=== PATIENT | male | born 1980 | race Two or more races ===

== ENCOUNTER 2016-08-16 14:45 | Emergency (ER) | payer SELFPAY ==
[2016-08-16] MEDS ORDERED: ZOFRAN INJ 4 MG VIAL IVP ONE (15:00)
[2016-08-16] MEDS ORDERED: DEMEROL INJ IVP ONE ×2 (15:00→16:54)
[2016-08-16] MEDS ORDERED: DEMEROL INJ ONE ×2 (15:01→16:56)
[2016-08-16] MEDS ORDERED: ZOFRAN INJ 4 MG VIAL ONE (15:01)
[2016-08-16] MEDS ORDERED: ROCEPHIN VIAL 1 GM 1 GM in NS 50 ML IV + SPIKE MINIBAG* 50 ML IV ONE (15:05)
--- NOTE | 2016-08-16 15:10 | DR.GENAD ---
HPI - Complaint/Symptoms Chief Complaint Doctors Comments: chin cut with chain saw [employer]ODUCTION [employer] - Nurses notes reviewed Nurses Notes Review: Yes - Source History Provided: Patient - Mode of Arrival Mode of Arrival: Ambulatory - Timing Came on: Suddenly - Duration Duration: Since Onset Duration: Minutes - Location Location: chin - Severity Severity: Moderate - Modifying Factors Worsens:: opening mouth - Associated Signs and Symptoms Associated Signs and Symptoms: tooth missing PMH - PMH Past Medical History: Hypertension Past Surgical History: No Surgical History: No History Unable to Obtain Due To: denies: Altered mental status, Dementia, Medical urgency, Intubated - Family History History of Family Medical Conditions: Yes - Social History Do you use any recreational Drugs:: No ROS - Review of Systems Constitutional: No Symptoms Reported Eyes: No Symptoms Reported ENTM: Mouth Pain Respiratoy: No Symptoms Reported Cardiovascular: No Symptoms Reported Gastrointestinal/Abdominal: No Symptoms Reported Genitourinary: No Symptoms Reported Neurological: No Symptoms Reported Musculoskeletal: No Symptoms Reported Integumentary: No Symptoms Reported Hematologic/Lymphatic: No Symptoms Reported Endocrine: No Symptoms Reported Psychiatric: Depression PE - Vital Signs Vitals: Temperature 98.9 F Pulse Rate 82 Respiratory Rate 16 Blood Pressure 160/105 O2 Sat by Pulse Oximetry 99 - General Limitations: No Limitations General Appearance: Alert, In No Apparent Distress - Head Head Exam: Normal Inspection - Eyes Eye exam: Normal Appearance, EOMI. negative: Scleral Icterus, Conjunctival Injection - ENT ENT Exam: negative: Normal Oropharynx (chin cut involving lower gum and tooth) External Ear Exam: Normal External Inspection Nose Exam: Normal Nose Exam Mouth Exam: Other (4cm chin cut). negative: Drooling, Trismus, Tongue Elevation , Tongue Swelling Throat Exam: Normal Inspection - Neck Neck Exam: Normal Inspection, Full ROM, Trachea Midline - Chest Chest Inspection: Normal Inspection - Respiratory Respiratory Exam: Normal Lung Sounds Bilat. negative: Accessory Muscle Use, Respiratory Distress Respiratory Exam: Bilateral Clear to Auscultation - Extremities Extremities Exam: Normal Inspection, Full ROM - Neurologic Neurological Exam: Alert, Oriented X3, CN II-XII Intact - Psychiatric Psychiatric Exam: Normal Mood, Anxious - Skin Skin Exam: Normal Color. negative: Intact (4cm cut to chin) Course - Treatment Treatment: 1630: case discussed with Dr. Pawan [facility] accepted patient R[facility] - Labs Reviewed Result Diagrams: 08/16/16 15:17 08/16/16 15:17 Laboratory: WBC 5.9 X10^3/uL (3.6-10.0) 08/16/16 15:17 RBC 5.53 X10^6/uL (4.7-6.0) 08/16/16 15:17 Hgb 16.0 g/dL (13.5-18.0) 08/16/16 15:17 Hct 45.9 % (42.0-54.0) 08/16/16 15:17 MCV 83.1 fL (80.0-100.0) 08/16/16 15:17 MCH 29.0 pg (27.0-34.0) 08/16/16 15:17 MCHC 34.9 g/dL (33.0-35.0) 08/16/16 15:17 RDW 13.4 % (11.6-16.5) 08/16/16 15:17 Plt Count 206 X10^3/uL (150.0-450.0) 08/16/16 15:17 MPV 7.9 fL (7.4-11.0) 08/16/16 15:17 Neut % 57.0 % (42.0-75.0) 08/16/16 15:17 Lymph % 31.7 % (21.0-51.0) 08/16/16 15:17 Converse % 7.4 % (0.0-13.0) 08/16/16 15:17 Eos % 3.4 % (0.9-2.9) H 08/16/16 15:17 Baso % 0.5 % (0.2-1.0) 08/16/16 15:17 Neut # 3.4 x10^3/uL (2.2-4.8) 08/16/16 15:17 Lymph # 1.9 X10^3/uL (1.3-2.9) 08/16/16 15:17 Converse # 0.4 x10^3/uL (0.3-0.8) 08/16/16 15:17 Eos # 0.2 x10^3/uL (0.0-0.2) 08/16/16 15:17 Baso # 0.0 X10^3/uL (0.0-0.1) 08/16/16 15:17 Absolute Nucleated RBC 0.0 /100WBC 08/16/16 15:17 Sodium 140 mmol/L (136-145) 08/16/16 15:17 Corrected Sodium 141 mmol/L (136-145) 08/16/16 15:17 Potassium 3.7 mmol/L (3.5-5.1) 08/16/16 15:17 Chloride 103 mmol/L (98-107) 08/16/16 15:17 Carbon Dioxide 29.7 mmol/L (21-32) 08/16/16 15:17 BUN 13 mg/dL (7-18) 08/16/16 15:17 Creatinine 1.13 mg/dL (0.70-1.30) 08/16/16 15:17 Est GFR (MDRD) Af Amer > 60 (>60) 08/16/16 15:17 Est GFR (MDRD) Non-Af > 60 (>60) 08/16/16 15:17 Glucose 156 mg/dL (65-99) H 08/16/16 15:17 Calcium 8.1 mg/dL (8.5-10.1) L 08/16/16 15:17 Procedures - Laceration/Wound Repair Face Wound Length (cm): 5 Wound's Depth, Shape: Linear, Irregular Betadine Prep?: Yes Anesthesia: 1% Lidocaine w/ Epi Volume Anesthetic (ccs): 8 Suture Size/Type: Other (le) Layer Closure?: No Sterile Dressing Applied?: Yes - Diagnosis Discharge Problem: Fracture Chin laceration Qualifiers: Encounter type: initial encounter Qualified Code(s): S01.81XA - Laceration without foreign body of other part of head, initial encounter - Discharge Plan Condition: Stable Prescriptions: Cephalexin [Keflex Cap 500 mg] 500 mg PO BID #20 cap Tramadol HCl [ULTRAM 50 MG *] 50 mg PO Q6H PRN #20 tab PRN Reason: Pain - Follow ups/Referrals Follow ups/Referrals: NFD,None [Primary Care Provider] - 3 days - Instructions
[2016-08-16 15:21] VITALS: BP 160/105; BMI 25.3
[2016-08-16] MEDS ORDERED: ROCEPHIN 1 GM IV PREMIX * OUT OF STOCK 50 ML IV ONE (15:26)
[2016-08-16 15:27] LABS: BASOPHILS % (AUTO) 0.5 % (0.2-1.0); EOSINOPHILS # (AUTO) 0.2 x10^3/uL (0.0-0.2); EOSINOPHILS % (AUTO) 3.4 % (0.9-2.9); HEMATOCRIT 45.9 % (42.0-54.0); LYMPHOCYTES # (AUTO) 1.9 X10^3/uL (1.3-2.9); LYMPHOCYTES % (AUTO) 31.7 % (21.0-51.0); MEAN CORPUSCULAR HGB CONC 34.9 g/dL (33.0-35.0); MEAN CORPUSCULAR VOLUME 83.1 fL (80.0-100.0); MEAN PLATELET VOLUME 7.9 fL (7.4-11.0); MONOCYTES # (AUTO) 0.4 x10^3/uL (0.3-0.8); MONOCYTES % (AUTO) 7.4 % (0.0-13.0); NEUTROPHILS # (AUTO) 3.4 x10^3/uL (2.2-4.8); PLATELET COUNT 206 X10^3/uL (150.0-450.0); RED BLOOD COUNT 5.53 X10^6/uL (4.7-6.0); RED CELL DISTRIBUTION WIDTH 13.4 % (11.6-16.5); WHITE BLOOD COUNT 5.9 X10^3/uL (3.6-10.0)
[2016-08-16 15:33] LABS: BLOOD UREA NITROGEN 13 mg/dL (7-18); CALCIUM 8.1 mg/dL (8.5-10.1); CARBON DIOXIDE 29.7 mmol/L (21-32); CHLORIDE 103 mmol/L (98-107); COR NA(FOR HYPERGLY) 141 mmol/L (136-145); CREATININE 1.13 mg/dL (0.70-1.30); GLUCOSE 156 mg/dL (65-99); SODIUM 140 mmol/L (136-145); eGFR BLACK RACES > 60 (>60); eGFR NON BLACK RACES > 60 (>60)
[2016-08-16] MEDS ORDERED: XYLOCAINE 1% and EPINEPHRINE 1:100,000 ONE (15:39)
[2016-08-16] MEDS ORDERED: XYLOCAINE 1% and EPINEPHRINE 1:100,000 IM ONE (15:39)
[2016-08-16] MEDS ORDERED: NS 500 ML IV 500 ML IV SCH (16:00)
--- NOTE | 2016-08-16 16:00 | CT ---
CT facial bones without contrast Indication: Chainsaw cut chin Comparison: None available Technique: Multiple axial images of the facial structures were obtained from the mandible to superio r portions of the orbits. Radiation dose reduction techniques were performed utilizing adjustment for MA/kVP based on patient body size. Findings: There is extensive soft tissue swelling within the median and right paramedian submandibular soft ti ssues. Multiple small radiopaque densities are noted within the subcutaneous tissues of the right ramirez bmandibular region with laceration within midline chin. There are radiopaque foreign bodies also not ed within the midline premandibular soft tissues for example on axial image 32. There is a nondispla shane fracture of a right mandibular tooth on coronal image 12 which appears to be the lateral incisor . Cortical irregularity involving the anterior aspect of the midline mandibular symphysis likely rep resents a nondisplaced fracture as well. No mandibular dislocation identified. Mild sinus mucosal di sease of the left maxillary sinus.. Pterygoid plates are intact. Orbits are unremarkable. Impression: Penetrating traumatic injury within the midline and right paramedian submandibular soft tissues with associated laceration within midline submandibular soft tissues. Multiple tiny radiopaq ue foreign bodies are noted within the midline submandibular and right paramedian soft tissues. Ther e is cortical irregularity involving the midline mandibular symphysis deep to a laceration likely re present a nondisplaced fracture. There is a nondisplaced fracture of a right mandibular tooth which appears represent the lateral incisor; however clinical correlation is needed. Reported By:
== END 2016-08-16 17:26 | disposition home or self-care (01) ==
LOC: ER 14:51
PROC: 0WQ20ZZ Repair Face, Open Approach (ICD-10-PCS; principal; 2016-08-16)
DX: S01.81XA Laceration without foreign body of other part of head, initial encounter (principal); S02.92XA Unspecified fracture of facial bones, initial encounter for closed fracture; W27.0XXA Contact with workbench tool, initial encounter; Y92.9 Unspecified place or not applicable
CPT/HCPCS: 12013; 36415; 70486; 80048; 85025; 96365; 96374; 96375; 99282; 99285; A4222; J0696; J2001; J2175; J2405

== ENCOUNTER 2016-10-18 13:55 | Emergency (ER) | payer SELFPAY ==
[2016-10-18 14:01] VITALS: BP 122/83; BMI 27.6
--- NOTE | 2016-10-18 14:41 | DR.GENAD ---
HPI - PCP Primary Care Physician: ZEHRA - HPI Comment HPI Comment: PAIN GETTING WORSE WELL THE SWELLING. NO SOB. TOOK ASPIRIN. NO FEVER. - Complaint/Symptoms Chief Complaint Doctors Comments: PAIN LEFT LEGS WITH VARICOSE VEINS AND PALPABLE CORDS TIMES 4 DAYS. Chief Complaint:: LEFT LEG HURTING, VEINS IN BACK OF LEFT LEG ARE HARD AND SWOLLEN. Self Treatment fo Chief Complaint: REST AND PROPPED LEG UP. ASPRIN - Nurses notes reviewed Nurses Notes Review: Yes - Source History Provided: Patient - Mode of Arrival Mode of Arrival: Ambulatory - Timing Onset of Chief Complaint: 10/14/16 Came on: Suddenly - Duration Duration: Constant Duration: Days - Severity Severity: Moderate PMH - PMH Past Medical History: Yes Past Medical History: Hypertension Past Surgical History: No Surgical History: No History - Family History History of Family Medical Conditions: No - Social History Type of Tobacco Use: Cigarettes Does any household member use tobacco: No Alcohol Use: None Do you use any recreational Drugs:: No Lives With: Alone Lives Where: Home - infectious screening In the last 2 months have you had wt loss of >10#?: NO Have you had fever, night sweats or hemotysis?: No Have you traveled outside the country in the last 6 months?: No Isolation: Standard ROS - Review of Systems Constitutional: negative: Chills, Fever, Fatigue Eyes: No Symptoms Reported. negative: Eye Pain, Discharge ENTM: No Symptoms Reported. negative: Ear Pain, Nose Discharge, Nose Congestion , Throat Pain Respiratoy: No Symptoms Reported. negative: Productive Cough, Non-Productive Cough, Short of Breath, Wheezing, Hemoptysis Cardiovascular: Edema (LET LEG). negative: Chest Pain Gastrointestinal/Abdominal: No Symptoms Reported. negative: Abdominal Pain, Constipation, Diarrhea, Nausea, Vomiting Genitourinary: No Symptoms Reported. negative: Dysuria, Frequency, Hematuria Neurological: No Symptoms Reported. negative: Headache, Weakness, Dizziness Musculoskeletal: Muscle Pain, Left, Leg Integumentary: No Symptoms Reported Hematologic/Lymphatic: No Symptoms Reported Endocrine: No Symptoms Reported All Other Systems: Reviewed and Negative PE - Vital Signs Vitals: Temperature 98 F Pulse Rate 73 Respiratory Rate 20 Blood Pressure 122/83 O2 Sat by Pulse Oximetry 99 - General Limitations: No Limitations General Appearance: Alert - Head Head Exam: Normal Inspection - Eyes Eye exam: Normal Appearance - ENT ENT Exam: Normal External Ear Exam External Ear Exam: Normal External Inspection TM/Canal Exam: Bilateral Normal Nose Exam: Normal Nose Exam Mouth Exam: Normal Inspection Throat Exam: Normal Inspection - Neck Neck Exam: Trachea Midline - Chest Chest Inspection: Symmetric Chest Wall Rise - Respiratory Respiratory Exam: Normal Lung Sounds Bilat Respiratory Exam: Bilateral Clear to Auscultation - Cardiovascular Cardiovascular Exam: Regular Rate, Normal Rhythm, Normal Heart Sounds - Abdominal Exam Abdominal Exam: Normal Bowel Sounds, Soft. negative: Tenderness - Extremities Extremities Exam: Tenderness (LT LEGS WITH VARICOSE VEINS THAT ARE DILATED. POSTERIOR ASPECT OF LEG POSITIVE PALPABLE CORDS.), Calf Tenderness (LEFT LEG), Other (PULSES INTACT.) - Back Back Exam: Normal Inspection - Neurologic Neurological Exam: Alert, Oriented X3 - Psychiatric Psychiatric Exam: Normal Affect, Normal Mood - Skin Skin Exam: Normal Color MDM - Differential Diagnosis Differential Diagnosis: DVT, PHLEBITIS, VARICOSE VEINS Course - Treatment Treatment: SEE ORDERS. - Education/Counseling Education/Counseling: Patient, Education Educated On: Treatment, Diagnosis, Needs for Follow Up ROR - Labs Reviewed Laboratory Results Reviewed?: Yes Laboratory: D-Dimer < 100 ng/mL (0-400) 10/18/16 14:45 - XRAY XRAY Interpreted by: Radiologist XRAY Findings: DISCUSS REPORT WITH PATIENT. - Diagnosis Discharge Problem: Venous stasis, Varicose vein of leg - Discharge Plan Disposition: 01 HOME, SELF-CARE Condition: Stable Prescriptions: Ibuprofen [MOTRIN TAB 600 MG *] 600 mg PO TID PRN #20 tab PRN Reason: Pain/Inflammation - Follow ups/Referrals Follow ups/Referrals: JOCELYN SMITH [Primary Care Provider] - 3 days - Instructions Instructions: Venous Stasis or Chronic Venous Insufficiency, Varicose Veins Additional Instructions: RETURN TO ED IF WORSE.
--- NOTE | 2016-10-18 16:18 | VAS ---
HISTORY: Left leg pain Study: Left lower extremity venous Doppler Comparison: None TECHNIQUE: Multiple hernadez scale as well as spectral and color flow Doppler images of the deep venous system were obtained of the left lower extremity. FINDINGS: The deep venous system of the left lower extremity was evaluated from the level of the common femora l vein through the popliteal vein. Normal color flow and augmentation can be observed. In addition , normal compression is seen throughout the deep venous system. However, there is overall dampened w aveform with decreased phasicity suggesting venous stasis. IMPRESSION: Negative for DVT. Probable venous stasis. Reported By:
== END 2016-10-18 17:13 | disposition home or self-care (01) ==
LOC: ER 14:17
DX: I87.8 Other specified disorders of veins (principal); I83.12 Varicose veins of left lower extremity with inflammation
CPT/HCPCS: 36415; 85378; 93971; 99282; 99283